=== PATIENT | female | born 2000 | race Caucasian/White ===

== ENCOUNTER 2022-12-31 04:28 | Emergency (ER) | payer BC ==
[~2022-12-31] VITALS: Ht 157.4 cm; Wt 58.1 kg
== END 2022-12-31 06:47 | disposition home or self-care (01) ==
LOC: ED 04:28
DX: U07.1 COVID-19 (principal); B27.90 Infectious mononucleosis, unspecified without complication

== ENCOUNTER 2023-03-20 00:52 | Emergency (ER) | payer MEDICAID ==
[~2023-03-20] VITALS: Ht 157.4 cm; Wt 54.4 kg
[2023-03-20 01:27] LABS: BASO # 0.1 10*3/uL (0.0-0.1); BASO % 0.6 % (0.0-1.0); EOS # 0.1 10*3/uL (0.0-0.4); EOS % 1.1 % (1.0-4.0); HEMATOCRIT 36.7 % (37.0-47.0); LYMPH # 2.1 10*3/uL (1.3-4.4); LYMPH % 22.9 % (27.0-41.0); MEAN CELL VOLUME 90.6 fl (81.0-99.0); MEAN CORPUSCULAR HGB 31.4 pg (27.0-31.0); MEAN CORPUSCULAR HGB CONC 34.6 g/dl (33.0-37.0); MEAN PLATELET VOLUME 9.9 fl (9.6-12.3); MONO # 0.5 10*3/uL (0.1-1.0); MONO % 5.2 % (3.0-9.0); NEUT # 6.4 10*3/uL (2.3-7.9); NEUT % 69.9 % (47.0-73.0); PLATELET COUNT AUTOMATED 313 10*3/uL (130-400); RED BLOOD COUNT 4.05 10*6/uL (4.10-5.10); RED CELL DISTRI WIDTH 11.7 % (0-14.5); WHITE BLOOD COUNT 9.1 10*3/uL (4.8-10.8)
[2023-03-20 01:40] LABS: ACT PARTIAL THROMBO TIME 24.8 SECONDS (20.0-32.1)
[2023-03-20 01:47] LABS: ALKALINE PHOSPHATASE 81 U/L (46-116); BUN 8 mg/dl (9-23); CHLORIDE 106 mmol/L (98-107); LIPASE 34 U/L (12-53); SGPT/ALT 7 U/L (10-49); TOTAL PROTEIN 6.9 gm/dL (6.0-8.0)
[2023-03-20 01:53] LABS: BETA-HCG, QUANT < 3.0 mIU/mL (3-10)
[2023-03-20] MEDS ORDERED: REGLAN10 M1 PO (04:08)
[2023-03-20] MEDS ORDERED: PEPCID AC10 M2 PO (04:08)
== END 2023-03-20 04:36 | disposition home or self-care (01) ==
LOC: ED 00:52
PROVIDERS: Internal Medicine
DX: K29.70 Gastritis, unspecified, without bleeding (principal); M54.9 Dorsalgia, unspecified; Z90.49 Acquired absence of other specified parts of digestive tract